=== PATIENT | male | born 1990 | race American Indian/Alaskan Native ===

== ENCOUNTER 2024-03-24 10:03 | Emergency (ER) | payer MEDICAID, SELFPAY ==
[2024-03-24 10:47] VITALS: BP 138/87; PULSE 91; RESP 16; TEMP 36.9; O2SAT 97; BMI 25.7
--- NOTE | 2024-03-24 10:48 | PD.EDANIML ---
ED Animal Bite RME/HPI General Chief Complaint: Animal Bite Stated Complaint: DOG BITE TO RIGHT LOWER LEG Time Seen by Provider: 03/24/24 10:35 Arrival date/time: 03/24/24 10:03 34-year-old male reports with animal bite to the left lower leg. Patient states this morning while riding his bike a dog ran up and bit him. 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 He is uncertain of when his last tetanus vaccine. Patient denies any numbness or tingling weakness or decreased range of motion in the lower extremities. He noticed 4 small puncture wounds from the dog's teeth on his legs. He denies fever or chills Limitations: no limitations Related Data Home Medications ?Medication ?Instructions ?Recorded ?Confirmed albuterol sulfate 90 mcg/actuation 2 puff inhalation Q6H PRN 05/25/19 05/25/19 aerosol inhaler Previous Rx's ?Medication ?Instructions ?Recorded benzonatate 200 mg capsule 200 mg PO TID PRN cough #30 caps 05/25/19 ipratropium bromide 21 mcg (0.03 2 spray intranasal BID #30 mL 05/25/19 %) nasal spray loratadine 10 mg tablet (Allergy 10 mg PO QDAY allergy symptoms #30 05/25/19 Relief (loratadine)) tabs pseudoephedrine HCl 120 mg 120 mg PO Q12H PRN nasal 05/25/19 tablet,extended release (Sudafed congestion #14 tabs 12 Hour) tiotropium bromide 1.25 2 puff inhalation QDAY #4 grams 05/25/19 mcg/actuation mist for inhalation (Spiriva Respimat) ibuprofen 800 mg tablet 800 mg PO TID PRN pain #30 tabs 07/13/20 oxycodone-acetaminophen 5 mg-325 1 tab PO Q8H PRN pain #6 tabs 07/14/20 mg tablet (Percocet) Allergies Allergy/AdvReac Type Severity Reaction Status Date / Time No Known Allergies Allergy Verified 03/24/24 10:04 Review of Systems Constitutional Constitutional: Denies chills and Denies fever(s) Musculoskeletal Musculoskeletal: Denies deformity, Denies joint swelling, Denies muscle weakness, Denies numbness and Denies tingling Integumentary/Breasts Skin/Breast: Denies unusual bruising and Reports wounds Neurologic Neurologic: Denies numbness and Denies tingling Hematologic/Lymphatic Hematologic/Lymphatic: Denies easy bleeding and Denies easy bruising Past Medical History Past Medical History CARDIAC: Negative Congestive Heart Failure RESPIRATORY: Negative Chronic Obstructive Pulmonary Disease (COPD) GENITOURINARY: Negative Renal Disease ENDOCRINE: Negative Diabetes Mellitus Type 1 or Diabetes Mellitus Type 2 Social History SMOKING STATUS: Current every day smoker ED Exam General Limitations: Present no limitations General appearance: Present alert and in no apparent distress Extremities Exam Extremities exam: Present full ROM, normal capillary refill and other (Left calf with 4 small superficial puncture wounds no evidence of infection, pulses reflexes 2+ sensory is intact is 5 out of 5 normal gait); Absent joint swelling or calf tenderness Neurological Exam Neurological exam: Present alert, oriented X3 and CN II-XII intact Psychiatric Psychiatric exam: Present normal affect and normal mood Skin Skin exam: Present warm, dry, intact and normal color Course Quality Measures none Orders Category Date Time Status Tet,Diphth,Pertuss(Acell)-Tdap [Boostrix Vacc] Med 03/24/24 10:48 Once 0.5 ml IMI .ONCE ONE Vital Signs Vital signs: Vital Signs Temperature 98.4 F 03/24/24 10:47 Pulse Rate 91 03/24/24 10:47 Respiratory Rate 16 03/24/24 10:47 Blood Pressure 138/87 H 03/24/24 10:47 Pulse Oximetry (%) 97 03/24/24 10:47 Oxygen Delivery Method Room Air 03/24/24 10:47 Animal Bite Patient data External records reviewed:: None Clinical information provided by:: patient Social determinants that could affect healthcare access:: none Patient has the following chronic illnesses:: none How is presenting disease/condition affected by chronic disease/condition?: no chronic disease Evaluation data The following diagnostics were reviewed and interpreted by me:: other (specify) (none) Lab and/or radiology exams considered but not ordered:: none Interpretation Summary: na Medications / Prescriptions Medications or Prescriptions considered but not ordered:: none Medication administrations:: TDAP Consultations Consultation(s) initiated? (list below): No Diagnosis Most likely diagnosis given after review of the tests above:: Dog bite Admission Indicated Admission indicated?: not indicated Admission Request Was there a request for admission?: No Disposition Plan Disposition Plan: Discharge Discharge Attestation Discharge Attestation: The patient and all family members were given an opportunity to ask questions and understood the discharge instructions. Discharge instructions specifically effects, indications for sooner follow up or return to the emergency department, and the expected course of current diagnosis. Patient condition: Stable Discharge Plan Plan Patient Disposition: HOME (Self Care) Prescriptions/Referrals Prescriptions/Med Rec: No Action albuterol sulfate 90 mcg/actuation HFA aerosol inhaler 2 puff INH Q6H PRN loratadine [Allergy Relief (loratadine)] 10 mg tablet 10 mg PO QDAY Qty: 30 3RF ipratropium bromide 0.03 % spray,non-aerosol 2 spray INTRANASAL BID Qty: 30 0RF Rx Instructions: administer into each nostril; wait 30 seconds between sprays benzonatate 200 mg capsule 200 mg PO TID PRN (Reason: cough) Qty: 30 0RF pseudoephedrine HCl [Sudafed 12 Hour] 120 mg tablet extended release 120 mg PO Q12H PRN (Reason: nasal congestion) Qty: 14 0RF Spiriva Respimat 1.25 mcg/actuation mist 2 puff INH QDAY Qty: 4 0RF ibuprofen 800 mg tablet 800 mg PO TID PRN (Reason: pain) Qty: 30 0RF oxycodone-acetaminophen [Percocet] 5-325 mg tablet 1 tab PO Q8H MDD 3 PRN (Reason: pain) Qty: 6 0RF Problem List Clinical Impression: Dog bite of extremity, Dog bite Patient/Caregiver Discharge Instructions Education Materials: ED Dog Bite Additional Instructions: Keep the area clean with soap and water only cover with clean dry bandage as needed. Follow-up with your primary care provider as needed Print Language: Uzbek Stand Alone Forms: [facility] Award Info., Patient Portal Info Letter Vaccines Vaccines Given During Stay: TDaP
[2024-03-24] MEDS: DIPHTH,PERTUSS(ACELL),TET VAC 0.5 ML VIAL IMi (10:52)
== END 2024-03-24 11:06 | disposition home or self-care (01) ==
PROVIDERS: Emergency Provider Emergency Medicine; PCP Physician Assistant
DX: S81.851A Open bite, right lower leg, initial encounter (principal); W54.0XXA Bitten by dog, initial encounter; Z23 Encounter for immunization
CPT/HCPCS: 90471; 90715; 99282

== ENCOUNTER → 2024-06-05 | Outpatient (CLI) | payer MEDICAID, SELFPAY ==
--- NOTE | 2024-06-05 | XR_ITS ---
Examination: Foot, left, 3 views Technique: AP, oblique, lateral views foot, 3 views Date and time of exam: June 05, 2024 1225 hours INDICATIONS: Left foot pain beginning 2 days ago FINDINGS: No acute fracture Mild narrowing first metatarsophalangeal joint Mild narrowing talonavicular joint and tibiotalar joint No erosive arthritis IMPRESSION: Mild osteoarthritis
--- NOTE | 2024-06-05 | XR_ITS ---
EXAMINATION: Ankle, left 3 views . Technique: Ankle AP, oblique, lateral 3 views Date and time of exam: June 05, 2024 1225 hours INDICATIONS: Left ankle pain beginning 2 days ago. FINDINGS: Mild spurring off the anterior lateral calcaneus Mild osteoarthritis tibiotalar and intertarsal joints No erosive arthritis No fracture IMPRESSION: Mild osteoarthritis
== END | disposition home or self-care (01) ==
PROVIDERS: PCP Nurse Practitioner Family; Referring Provider Nurse Practitioner Family; Visit Provider Nurse Practitioner Family
DX: M19.072 Primary osteoarthritis, left ankle and foot (principal)
CPT/HCPCS: 73610; 73630